=== PATIENT | female | born 1985 ===

== ENCOUNTER 2018-02-18 14:40 | Outpatient (CLI) | payer BC ==
--- NOTE | 2018-02-18 16:15 | ULT ---
ULTRASOUND WITH DOPPLER DUPLEX VENOUS LOWER EXTREMITY RIGHT 02/18/18 CPT: 70501 ICD-10-PCS: B54D HISTORY: Pain and edema. TECHNIQUE: Color flow Doppler, spectral waveform analysis of pulsed Doppler, and powers-scale imaging with ramandeep zeb and augmentation, were used to evaluate the right common femoral, femoral, popliteal, posterior tibial, and superficial femoral, veins; and the proximal portions of the profunda femoral and greater saphenous, veins. FINDINGS: There is lack of normal compressibility and flow within superficial venous structures of the right le g, at the level of the calf. Otherwise, the deep vein structures reveal compressibility and flow. IMPRESSION: Evidence of superficial venous thrombosis involving the level of the right calf. Notification placed to the care provider by the pearl fisherman at the time of the exam, 1535 hours, 01/31 . Code CR POS: [id number]
== END 2018-02-18 14:41 | disposition home or self-care (01) ==
LOC: BICULT 14:40
PROVIDERS: ATTEND Family Medicine
DX: Z03.89 Encounter for observation for other suspected diseases and conditions ruled out (principal); I82.811 Embolism and thrombosis of superficial veins of right lower extremity

== ENCOUNTER 2021-03-14 17:23 | Emergency (ER) | payer BC ==
[2021-03-14] MEDS ORDERED: Aspirin 325 MG TAB ONE (21:49)
== END 2021-03-14 21:36 | disposition home or self-care (01) ==
LOC: ERS 17:23
DX: M79.662 Pain in left lower leg (principal); R60.0 Localized edema